=== PATIENT | male | born 1985 | race Caucasian/White ===

== ENCOUNTER 2016-11-27 05:50 | Emergency (ER) | payer MEDICAID ==
[~2016-11-27] VITALS: Ht 170.2 cm; Wt 77.3 kg
[2016-11-27 06:28] LABS: BASOPHILS % 0.5 % (0.0-2.0); EOSINOPHILS % 4.2 % (0.0-5.0); HEMATOCRIT. 53.3 % (42.0-52.0); HEMOGLOBIN. 17.1 g/dL (14.0-18.0); LYMPHOCYTES % 27.5 % (20.0-50.0); MEAN CORPUSCULAR VOLUME 96.8 fL (80.0-94.0); MEAN PLATELET VOLUME 8.6 fl (7.4-10.4); NEUTROPHILS % 58.8 % (40.0-76.0); PLATELET 405 x1000/uL (130-400); RED BLOOD CELL COUNT 5.51 mill/uL (4.7-6.1); RED CELL DISTRIBUTION WIDTH 14.3 % (11.6-14.6)
[2016-11-27] MEDS ORDERED: METOPROLOL TARTRATE 5MG/5ML VIAL IV ONE (06:30)
[2016-11-27 06:43] LABS: CHLORIDE 99 mEq/L (98-107); ETHANOL BLOOD < 10 mg/dL
[2016-11-27 07:00] LABS: CLARITY URINE CLEAR (CLEAR); COLOR URINE DARK YELLOW (YELLOW); GLUCOSE URINE NEGATIVE (NEGATIVE); KETONES URINE NEGATIVE (NEGATIVE); LEUKOCYTE ESTERASE URINE NEGATIVE (NEGATIVE); NITRITE URINE NEGATIVE (NEGATIVE); OCCULT BLOOD URINE NEGATIVE (NEGATIVE); PROTEIN URINE 1+ (NEGATIVE); SPECIFIC GRAVITY URINE 1.026 (1.005-1.030)
[2016-11-27] MEDS ORDERED: ONDANSETRON HCL 4MG/2ML VIAL IV ONE (07:00)
[2016-11-27] MEDS ORDERED: LORAZEPAM 2MG/ML CPJ IV ONE (07:00)
[2016-11-27 07:03] LABS: CARBON DIOXIDE 8 mEq/L (21-32)
[2016-11-27 07:10] LABS: *AMPHETAMINES SCREEN URINE PRESUMTIVE POSITIVE (NEGATIVE); *BARBITURATES SCREEN URINE NEGATIVE (NEGATIVE); *BENZODIAZEPINES SCREEN URINE NEGATIVE (NEGATIVE); *COCAINE SCREEN URINE NEGATIVE (NEGATIVE); CANNABINOID URINE SCREEN NEGATIVE (NEGATIVE); METHADONE URINE SCREEN NEGATIVE (NEGATIVE); OPIATES URINE SCREEN NEGATIVE (NEGATIVE); PHENCYCLIDINE URINE SCREEN NEGATIVE (NEGATIVE)
[2016-11-27] MEDS ORDERED: SODIUM CHLORIDE 0.9% 1000ML BAG (SEPSIS BOLUS) IV ONE (07:15)
[2016-11-27 09:50] LABS: CARBON DIOXIDE 21 mEq/L (21-32); CHLORIDE 108 mEq/L (98-107); TROPONIN I < 0.02 ng/mL (0.00-0.04)
[2016-11-27 20:50] VITALS: BP 127/87
== END 2016-11-27 21:01 | disposition home or self-care (01) ==
LOC: EDBD 05:58 → ER 05:58
DX: F15.10 Other stimulant abuse, uncomplicated (principal); R56.9 Unspecified convulsions; Z95.2 Presence of prosthetic heart valve
CPT/HCPCS: 36415; 70450; 80048; 80053; 80305; 81001; 82962; 84484; 85025; 93005; 96361; 96374; 96375; 99285; G0482; J2060; J2405; J3490; J7030; Z7610

== ENCOUNTER 2021-04-25 17:11 | Emergency (ER) | payer MEDICAID ==
[~2021-04-25] VITALS: Ht 165.1 cm; Wt 82.0 kg
[2021-04-26] MEDS ORDERED: KETOROLAC 60MG/2ML VIAL IM STA (01:10)
[2021-04-26] MEDS ORDERED: BACITRACIN ZINC OINT UDPKT TOP ONE (01:15)
[2021-04-26] MEDS ORDERED: LIDOCAINE HCL/PF 1% 10 MG/ML 5ML VIAL INFIL ONE (01:15)
[2021-04-26] MEDS ORDERED: LIDOCAINE HCL/PF 1% 10 MG/ML 5ML VIAL INFIL NR (01:45)
[2021-04-26] MEDS ORDERED: LIDOCAINE HCL 1% 20ML VIAL (Pyxis) INJ INFIL NR (01:45)
[2021-04-26] MEDS ORDERED: LIDOCAINE HCL 1% 10 MG/ML 10ML VIAL INJ NR (01:45)
[2021-04-26] MEDS ORDERED: SULF1TAB48 PO (03:02)
[2021-04-26] MEDS ORDERED: NEOM10DR11 LEFT EAR (03:02)
[2021-04-26] MEDS ORDERED: CEPH500T PO (03:02)
[2021-04-26] MEDS ORDERED: IBUP-2029 PO (03:02)
[2021-04-26 03:19] VITALS: BP 130/72
== END 2021-04-26 03:20 | disposition home or self-care (01) ==
LOC: ER 17:11
DX: L02.412 Cutaneous abscess of left axilla (principal); H60.92 Unspecified otitis externa, left ear; F15.10 Other stimulant abuse, uncomplicated; Q25.6 Stenosis of pulmonary artery; R01.1 Cardiac murmur, unspecified
CPT/HCPCS: 96372; 99283; J1885; J3490; Z7610

== ENCOUNTER 2021-04-27 14:14 | Emergency (ER) | payer MEDICAID ==
[~2021-04-27] VITALS: Ht 165.1 cm; Wt 81.0 kg
[~2021-04-27 14:14] MED LIST: CEPH500T PO; IBUP-2029 PO; NEOM10DR11 LEFT EAR; SULF1TAB48 PO
[2021-04-27] MEDS ORDERED: IBUPROFEN 800MG TABLET PO ONE (16:30)
[2021-04-27 16:41] VITALS: BP 109/50
== END 2021-04-27 16:42 | disposition home or self-care (01) ==
LOC: ER 14:14
DX: L02.412 Cutaneous abscess of left axilla (principal); Z48.02 Encounter for removal of sutures; F15.10 Other stimulant abuse, uncomplicated; Z98.890 Other specified postprocedural states; Z79.899 Other long term (current) drug therapy
CPT/HCPCS: 99282

== ENCOUNTER 2021-04-30 09:38 | Emergency (ER) | payer MEDICAID ==
[~2021-04-30] VITALS: Ht 165.1 cm; Wt 74.0 kg
[2021-04-30 09:41] VITALS: BP 113/57
== END 2021-04-30 11:17 | disposition home or self-care (01) ==
LOC: ER 09:38
DX: Z48.00 Encounter for change or removal of nonsurgical wound dressing (principal); L02.412 Cutaneous abscess of left axilla
CPT/HCPCS: 99281; 99282

== ENCOUNTER 2021-05-14 09:47 | Emergency (ER) | payer MEDICAID ==
[~2021-05-14] VITALS: Ht 165.1 cm; Wt 77.0 kg
[2021-05-14 09:53] VITALS: BP 108/66
[2021-05-14] MEDS ORDERED: XLV MT (10:43)
[2021-05-14] MEDS ORDERED: VISCOUS LIDOCAINE 2% 15 ML UDC MM ONE (10:45)
== END 2021-05-14 11:16 | disposition home or self-care (01) ==
LOC: ER 09:47
DX: K13.79 Other lesions of oral mucosa (principal); F17.210 Nicotine dependence, cigarettes, uncomplicated; Z71.6 Tobacco abuse counseling; F14.11 Cocaine abuse, in remission; F15.11 Other stimulant abuse, in remission; F16.11 Hallucinogen abuse, in remission
CPT/HCPCS: 99281; 99283; 99406

== ENCOUNTER 2021-06-06 13:21 | Emergency (ER) | payer MEDICAID ==
[~2021-06-06] VITALS: Ht 165.1 cm; Wt 75.0 kg
[~2021-06-06 13:21] MED LIST changes: +XLV MT
[2021-06-06] MEDS ORDERED: KETOROLAC 60MG/2ML VIAL IM STA (14:23)
[2021-06-06] MEDS ORDERED: CEFTRIAXONE SODIUM 1 G/VIAL IM ONE (14:30)
[2021-06-06] MEDS ORDERED: LIDOCAINE HCL 1% 20ML VIAL (Pyxis) INJ INFIL ONE (14:30)
[2021-06-06] MEDS ORDERED: SULF1TAB48 MT (15:29)
[2021-06-06] MEDS ORDERED: CEPH500T MT (15:29)
[2021-06-06] MEDS ORDERED: NAPR-681 PO (15:29)
[2021-06-06] MEDS ORDERED: T3 PO (15:29)
[2021-06-06 15:36] VITALS: BP 123/76
== END 2021-06-06 15:34 | disposition home or self-care (01) ==
LOC: ER 13:21
DX: K13.0 Diseases of lips (principal)
CPT/HCPCS: 96372; 99284; J0696; J1885; J3490

== ENCOUNTER 2021-08-27 15:42 | Emergency (ER) | payer MEDICAID ==
[~2021-08-27] VITALS: Ht 165.1 cm; Wt 77.0 kg
[~2021-08-27 15:42] MED LIST changes: +CEPH500T MT; +NAPR-681 PO; +SULF1TAB48 MT; +T3 PO
[2021-08-27 15:50] VITALS: BP 119/70
== END 2021-08-27 22:14 | disposition left against medical advice (07) ==
LOC: ER 15:42
DX: Z53.21 Procedure and treatment not carried out due to patient leaving prior to being seen by health care provider (principal)

== ENCOUNTER 2023-02-19 10:06 | Emergency (ER) | payer MEDICAID ==
[~2023-02-19] VITALS: Ht 165.1 cm; Wt 78.0 kg
[~2023-02-19 10:06] MED LIST changes: +DOXY100C5 MT; +DOXY100T28 MT; +HYDR-4001 MT; +IBUP-2029 MT
[2023-02-19 10:16] VITALS: TEMP 98.1; O2SAT 98
[2023-02-19 10:52] VITALS: BP 135/75; PULSE 86; RESP 16
[2023-02-19] MEDS ORDERED: IBUPROFEN 600MG TABLET PO STA (10:52)
[2023-02-19] MEDS ORDERED: LIDOCAINE HCL/EPINEPHRINE 1%-EPI 1:100,000 20 ML VIAL INFIL ONE (11:00)
[2023-02-19] MEDS ORDERED: BACITRACIN ZINC OINT UDPKT TOP ONE (11:00)
[2023-02-19] MEDS ORDERED: SULF1TAB48 MT (11:01)
[2023-02-19] MEDS ORDERED: LIDOCAINE HCL 1%/EPI 1:200,000 30 ML VIAL MC ONE (11:15)
== END 2023-02-19 14:24 | disposition home or self-care (01) ==
LOC: ER 10:06
DX: L02.31 Cutaneous abscess of buttock (principal); Z79.899 Other long term (current) drug therapy; Z98.890 Other specified postprocedural states; Z90.49 Acquired absence of other specified parts of digestive tract; Z86.59 Personal history of other mental and behavioral disorders
CPT/HCPCS: 10060; 99283; J3490; Z7610 ×2